=== PATIENT | female | born 1970 ===

== ENCOUNTER 2016-11-28 14:34 | Emergency (ER) | payer BC, OTHER ==
[2016-11-28 14:47] VITALS: BP 110/72; PULSE 67; RESP 16; TEMP 98.1; O2SAT 99
[2016-11-28] MEDS ORDERED: Lidocaine 1% (10 ml) Inj INFIL STA (14:54)
[2016-11-28] MEDS ORDERED: TDAP Vaccine 0.5 mL Syr IM ONE (14:54)
--- NOTE | 2016-11-28 15:00 | ED PDOC ---
Upper Extremity Pain/Injury Time Seen by Provider: 11/28/16 14:51 Chief Complaint (Nursing): Finger,Hand,&Wrist Chief Complaint (Provider): Finger,Hand,&Wrist History Per: Patient History/Exam Limitations: no limitations Onset/Duration Of Symptoms: Hrs (prior to arrival) Current Symptoms Are (Timing): Still Present Additional Complaint(s): 46 y/o female presents to the emergency department with a complaint of a laceration after the handle of a coffee mug broke and cut her on the right thumb prior to arrival. Tetanus vaccination is not up to date. PMD: Dr. Ayad Bustos MD Past Medical History Reviewed: Historical Data, Nursing Documentation, Vital Signs Vital Signs: Last Vital Signs Temp 98.1 F 11/28/16 14:44 Pulse 67 11/28/16 14:44 Resp 16 11/28/16 14:44 BP 110/72 11/28/16 14:44 Pulse Ox 99 11/28/16 14:44 - Medical History PMH: No Chronic Diseases - Family History Family History: States: Unknown Family Hx - Immunization History Hx Tetanus Toxoid Vaccination: No Hx Influenza Vaccination: No Hx Pneumococcal Vaccination: No - Allergies Allergies/Adverse Reactions: Allergies Allergy/AdvReac Type Severity Reaction Status Date / Time Sulfa (Sulfonamide Allergy RASH Verified 11/28/16 14:43 Antibiotics) Review of Systems ROS Statement: Except As Marked, All Systems Reviewed And Found Negative Skin: Positive for: Other (Laceration on the right thumb) Physical Exam - Reviewed Nursing Documentation Reviewed: Yes Vital Signs Reviewed: Yes - Physical Exam Appears: Positive for: Non-toxic, No Acute Distress Head Exam: Positive for: ATRAUMATIC, NORMAL INSPECTION, NORMOCEPHALIC Skin: Positive for: Normal Color, Warm, Dry Extremity: Positive for: Normal ROM, Other (2 cm laceration located to the posterior right thumb over the MCP) Neurologic/Psych: Positive for: Alert, Oriented - ECG O2 Sat by Pulse Oximetry: 99 (RA) Pulse Ox Interpretation: Normal Medical Decision Making Medical Decision Making: Time: 14:51 Initial Impression: Laceration to the right thumb Initial Plan: --Lidocaine HCL 0.5% PF 50 ml INFIL --TDAP Vaccine 0.5 ml IM --Revaluation Scribe Attestation: Documented by Lorena Wilkinson, acting as a scribe for Leonora Cordero PA-C. Provider Scribe Attestation: All medical record entries made by the Scribe were at my direction and personally dictated by me. I have reviewed the chart and agree that the record accurately reflects my personal performance of the history, physical exam, medical decision making, and the department course for this patient. I have also personally directed, reviewed, and agree with the discharge instructions and disposition. Disposition - Clinical Impression Clinical Impression: Thumb laceration, Tetanus toxoid vaccination administered at current visit - Disposition Referrals: [facility] [Outside] Disposition Time: 15:32 Condition: STABLE Additional Instructions: Do not get wet for 24-48 hours. Keep clean and dry with antibiotic ointment twice a day. Suture removal in 8-10 days. Return sooner for signs of infection including increased pain, redness or drainage from the wound site. Instructions: Care For Your Stitches (ED)
[2016-11-28] MEDS ORDERED: Lidocaine 1% Inj (20ml) ONE (15:06)
== END 2016-11-28 15:42 | disposition home or self-care (01) ==
LOC: H.ER 14:34
DX: S61.011A Laceration without foreign body of right thumb without damage to nail, initial encounter (principal); W25.XXXA Contact with sharp glass, initial encounter; Y92.89 Other specified places as the place of occurrence of the external cause

== ENCOUNTER 2016-12-08 18:25 | Emergency (ER) | payer OTHER ==
[2016-12-08 18:30] VITALS: BP 98/51; PULSE 67; RESP 18; TEMP 98.6; O2SAT 98
--- NOTE | 2016-12-08 18:55 | ED PDOC ---
HPI: Wound Care - HPI Time Seen by Provider: 12/08/16 18:40 Chief Complaint (Nursing): Suture/Staple Removal Chief Complaint (Provider): suture removal History Per: Patient Exam Limitations: no limitations Current Symptoms Are (Timing): Better Additional Complaint(s): 46 y/o female presents to the emergency department for suture removal of laceration to right thumb that was repaired 10 days ago. Patient denies pain, bleeding or drainage. She states tetanus is up-to-date. PMD: Ayad tipton Past Medical History Reviewed: Historical Data, Nursing Documentation, Vital Signs Vital Signs: Last Vital Signs Temp 98.6 F 12/08/16 18:28 Pulse 67 12/08/16 18:28 Resp 18 12/08/16 18:28 BP 98/51 L 12/08/16 18:28 Pulse Ox 98 12/08/16 18:28 - Medical History PMH: No Chronic Diseases - Surgical History Surgical History: No Surg Hx - Family History Family History: States: No Known Family Hx - Living Arrangements Living Arrangements: With Family - Social History Current smoker - smoking cessation education provided: No Alcohol: None Drugs: Denies - Allergies Allergies/Adverse Reactions: Allergies Allergy/AdvReac Type Severity Reaction Status Date / Time Sulfa (Sulfonamide Allergy RASH Verified 12/08/16 18:27 Antibiotics) Review of Systems ROS Statement: Except As Marked, All Systems Reviewed And Found Negative Constitutional: Negative for: Fever, Chills Musculoskeletal: Positive for: Other (Suture removal of repaired laceration to right thumb) Physical Exam - Reviewed Nursing Documentation Reviewed: Yes Vital Signs Reviewed: Yes - Physical Exam Appears: Positive for: Well, Non-toxic, No Acute Distress Head Exam: Positive for: ATRAUMATIC, NORMAL INSPECTION, NORMOCEPHALIC Skin: Positive for: Normal Color Extremity: Positive for: Normal ROM, Other (Well healed sutured laceration noted to proximal right thumb dorsally. No sign of infection, wound is clean, dry and intact). Negative for: Deformity Neurologic/Psych: Positive for: Alert, Oriented - ECG O2 Sat by Pulse Oximetry: 98 (RA) Pulse Ox Interpretation: Normal Procedure: Wound Repair - Muscle repiar layer closed with Muscle repair layer closed with:: Tetanus up to date Medical Decision Making Medical Decision Making: Time: 18:40 Initial Impression: 46 y/o female her for suture removal Time: 18:55 --2 sutures removed w/o any difficulty. Provided patient with would care instructions. Patient advised to keep area clean and dry and to follow up as needed with primary care doctor. Clinical Impression: Removal of suture Scribe Attestation: Documented by Lorena Wilkinson, acting as a scribe for Evelin Geller PA-C. Provider Scribe Attestation: All medical record entries made by the Scribe were at my direction and personally dictated by me. I have reviewed the chart and agree that the record accurately reflects my personal performance of the history, physical exam, medical decision making, and the department course for this patient. I have also personally directed, reviewed, and agree with the discharge instructions and disposition. Disposition - Clinical Impression Clinical Impression: Removal of suture - Patient ED Disposition Is Patient to be Admitted: No Counseled Patient/Family Regarding: Diagnosis, Need For Followup - Disposition Referrals: [facility] [Outside] Disposition: Routine/Home Disposition Time: 18:55 Condition: STABLE Additional Instructions: Keep area clean and dry. Follow up as needed with primary care doctor. Instructions: Stitches Removal (ED)
== END 2016-12-08 19:27 | disposition home or self-care (01) ==
LOC: H.ER 18:25
DX: Z48.02 Encounter for removal of sutures (principal)

== ENCOUNTER 2017-03-14 09:10 | Emergency (ER) | payer OTHER ==
[2017-03-14 09:24] VITALS: BP 116/75; PULSE 76; RESP 19; TEMP 98.6; O2SAT 99
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
--- NOTE | 2017-03-14 11:51 | CARD ---
APPROVED REPORT EKG Measurement Heart [id number] <Conclusion> Normal sinus rhythm Normal ECG
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
== END 2017-03-14 12:51 | disposition home or self-care (01) ==
LOC: H.ER 09:10
DX: S20.219A Contusion of unspecified front wall of thorax, initial encounter (principal); V43.52XA Car driver injured in collision with other type car in traffic accident, initial encounter; Y92.410 Unspecified street and highway as the place of occurrence of the external cause